=== PATIENT | female | born 1995 | race African-American/Black ===

== ENCOUNTER 2021-01-18 19:00 | Inpatient (IN) | payer BC, SELFPAY ==
[2021-01-18 19:42] VITALS: BP 124/73
[2021-01-18 19:43] VITALS: PULSE 81; O2SAT 98
[2021-01-18 19:45] VITALS: TEMP 36.6
[2021-01-18 19:50] VITALS: BMI 34.8
[2021-01-18] MEDS: Lactated Ringers 1,000 ML 50 ML IV (20:35)
[2021-01-18] MEDS: miSOPROStol 50 MCG TABLET 100 MCG VAGINAL (21:05)
[2021-01-18 21:14] LABS: Absolute Lymphocyte Count 2.71 X10^3/uL (0.83-4.51); Absolute Neutrophil Count 8.2 X10^3/uL (2.0-7.7); Basophil# 0.05 X10^3/uL; Basophil% 0.4 % (0-1); Eosinophil# 0.14 X10^3/uL; Eosinophils% 1.2 % (0-5); Hemoglobin 12.6 g/dL (12.0-15.0); Lymphocyte # 2.71 X10^3/ul (0.83-4.51); Lymphocyte % 22.4 % (19-41); Mean Corpuscular Hgb 31.8 pg (27.0-32.0); Mean Corpuscular Volume 90.9 fL (81-99); Mean Platelet Vol. 11.3 fl (6.2-12.0); Monocyte# 0.96 X10^3/uL; Monocyte% 7.9 % (0-10); NRBC Flagged by Analyzer 0 % (0-5); Neutrophil # 8.16 X10^3/uL (2.7-7.7); Neutrophil % 67.3 % (47-70); Platelet Count 281 K/mm3 (150-450); RBC Distribution Width SD 43.3 fl (35.1-43.9); Red Blood Count 3.96 M/mm3 (4.2-5.4); White Blood Count 12.1 K/mm3 (4.4-11.0)
[2021-01-18 23:46] VITALS: TEMP 36.6
[2021-01-18 23:47] VITALS: BP 107/57; PULSE 85; O2SAT 97
[2021-01-19] VITALS (23 sets, daily range): BP systolic 101–131; BP diastolic 54–86; PULSE 62–102; TEMP 36.6–37.6; O2SAT 94–97
[2021-01-19] MEDS: miSOPROStol 200 MCG Tablet VAGINAL ×3 (01:10→09:49)
[2021-01-19] MEDS: HYDROmorphone 1 MG/ML Syringe IV ×5 (06:20→19:32)
[2021-01-19] MEDS: Ondansetron 4 MG/2 ML Vial IV (06:30)
[2021-01-19] MEDS: 0.9% Saline Lock 10 ML Syringe IV ×4 (07:26→17:32)
--- NOTE | 2021-01-19 10:03 | HP.PCM.OB_ITS ---
HPI - General General Date of Admission: 01/18/21 HPI Narrative ARLETTE DELEON, is a 25-year-old 1 para 0 who was admitted at 23 weeks gestation on 01/18/2021. She is 23-1/7 weeks today. She was admitted for intrauterine demise in the second trimester. This is suspected to be due to cardiac anomaly that was diagnosed earlier in the . Patient's past medical history is significant for maternal obesity with BMI of 34, vitamin D deficiency and history of thyroid cancer and thyroidectomy. She also has a history of genital herpes. Maternal Data Information Final LORAINE: 05/17/21 Final LORAINE Source: LMP Gestational age: 23 1/7 [facility] Medical History (Updated 01/19/21 @ 10:[address] Marii Hunt MD) Hypothyroid Home Medications 1 cap PO/SL DAILY 01/18/21 [History Last Taken Unknown] levothyroxine 137 mcg PO DAILY 01/18/21 [History Last Taken Unknown] Allergy/AdvReac Type Severity Reaction Status Date / Time No Known Allergies Allergy Verified 01/18/21 19:51 Surgical History (Updated 01/18/21 @ 19:55 by Barbara Richardson) H/O thyroidectomy [place] teeth extracted Social History Smoking Status: Never smoker History Elective abortions Hx Para 0 Spontaneous abortions Hx # Term Pregnancies Ectopic pregnancies Hx # Pregnancies Multiple births # of living children ROS Constitutional Constitutional: Denies fatigue, fever(s) or malaise Eyes Eyes: Denies change in vision ENT HEENT: Denies dizziness or headache(s) Cardiovascular Cardiovascular: Denies chest pain, dyspnea or lightheadedness Respiratory/Chest Respiratory/Chest: Denies cough or dyspnea Gastrointestinal Gastrointestinal: Denies change in bowel habits Genitourinary Genitourinary: Denies burning urination or genital lesions Integumentary Integumentary: Denies rash Neurologic Neurologic: Denies confusion, dizziness, headache(s), numbness or weakness Vital Signs Vital Signs Vital Signs: 01/18/21 19:42 01/18/21 19:43 01/18/21 19:45 Temperature 97.9 F Temperature Source Temporal Pulse Rate 81 Blood Pressure 124/73 H BP Systolic 124 BP Diastolic 73 Pulse Ox 98 01/18/21 23:46 01/18/21 23:47 01/19/21 01:01 Temperature 97.9 F 98.2 F Temperature Source Pulse Rate 85 Blood Pressure 107/57 L BP Systolic 107 BP Diastolic 57 Pulse Ox 97 97 01/19/21 01:02 01/19/21 05:21 01/19/21 05:25 Temperature Temperature Source Temporal Temporal Pulse Rate 71 83 Blood Pressure 109/54 L 120/71 BP Systolic 109 120 BP Diastolic 54 71 Pulse Ox 96 01/19/21 05:26 01/19/21 07:15 01/19/21 07:16 Temperature 99.7 F H 98.6 F Temperature Source Pulse Rate 80 Blood Pressure 114/86 H BP Systolic 114 BP Diastolic 86 Pulse Ox 95 01/19/21 09:44 Temperature 99.0 F Temperature Source Pulse Rate 83 Blood Pressure 131/86 H BP Systolic 131 BP Diastolic 86 Pulse Ox Weight Weight: 89.267 kg Body Mass Index (BMI) 34.8 Physical Exam Const alert and no apparent distress General Appearance: cooperative HEENT normocephalic Resp normal respiratory effort Cardio regular rate GI soft to palpation GI Narrative: gravid, nontender, appropriate for gestational age Extremity no calf tenderness General Extremity: edema Skin no wounds Rashes: No rashes noted Psych activity/motor behavior normal Labs Labs Labs: Blood Type O POSITIVE Antibody Screen NEGATIVE Hct 36.0 % (37-47) L Hgb 12.6 g/dL (12.0-15.0) VZV IgG Antibody 988 index (Immune >165) Hep Bs Antigen Negative (Negative) Neisseria gonorrhoeae DNA (JASON) Negative (Negative-) Assessment & Plan (1) 23 weeks gestation of : (2) Normal first confirmed, currently in second trimester: (3) demise: PLAN: Patient was consented for induction of labor in the office on 01/18/2021. Patient elected for Cytotec induction. Risk benefits alternatives were reviewed, her questions were answered and she desires to proceed. This morning patient is doing well. Not have any significant bleeding. She has had some cramping but it has been well controlled with IV pain medication. We discussed expectations and again her questions were answered. She is comfortable with plan. May have epidural if needed. We will continue clear liquids only in case a D&C as needed to deliver the placenta. (4) cardiac anomaly complicating , antepartum, single gestation: (5) Maternal obesity syndrome: (6) Obesity (BMI 30-39.9):
[2021-01-19] MEDS: Oxytocin 30 units/NS 500 ml 30 UNITS/500 ML IV.SOLN IV (15:25)
[2021-01-19] MEDS: Oxytocin 30 units/NS 500 ml 30 UNITS/500 ML IV.SOLN 334 UNITS IV (20:43)
--- NOTE | 2021-01-19 20:52 | EX.PCM.OBRPT ---
Maternal Data Information Final LORAINE: 05/17/21 Gestational age: 23&2 Vaginal Delivery Maternal Presentation Maternal Presentation: Medically Indicated Induction Maternal Presentation: demise diagnosed in the office. Fetus with a known cardiac anomaly. Type of Induction: Pitocin and Cytotec Medical Reason for Induction: demise Operative Information Date of Procedure: 01/19/21 Pre-Operative Diagnosis: 23wk demise Post-Operative Diagnosis: Same Surgery / Procedure Performed: Spontaneous Vaginal Delivery Type of Anesthesia: None Estimated Blood Loss: 100ml Findings Description of Procedure: Called by RN when head & amniotic sac palpated in vaginal canal. She pushed well to deliver the fetus. As the fetus delivered the amniotic membranes ruptured. 3VC clamped & cut. Fetus wrapped in a blanket & placed in patient's arms by nursing staff. Placenta delivered with gentle traction and good uterine tone obtained. Presentation: Vertex Amniotic Membrane Rupture Type: Spontaneous Amniotic Fluid Description: Clear Placental Delivery Description: Spontaneous Placenta Disposition: [facility] Specimen(s) Removed: Placenta Cord Vessel Description: 3 Vessels Cord Entanglement: None A Gender: Male Delayed Cord Clamping: No Post Vaginal Delivery Medications Given After Delivery: IV Pitocin Episiotomy Description: None Laceration: None Complication Complications: None
--- NOTE | 2021-01-19 21:54 | NURSING ---
This RN obtained weight and length of . Weight: 15.8oz Length: 10.5 inches
[2021-01-20 03:21] VITALS: TEMP 35.8
[2021-01-20 03:22] VITALS: BP 99/55; PULSE 79
[2021-01-20 03:26] VITALS: BP 99/55; PULSE 79; RESP 16; TEMP 36.3
--- NOTE | 2021-01-20 08:28 | PCM.PN.OB ---
Subjective Subjective Patient tearful this morning but doing okay. She has no complaints and desires discharge. No pain, nausea, vomiting, heavy bleeding. Her parents were visiting last night. Her partner is with her at bedside for support. Objective Data Objective Data Vital Signs: Vital Signs Temp Pulse Resp BP Pulse Ox 97.4 F L 79 16 99/55 L 95 01/20/21 03:26 01/20/21 03:26 01/20/21 03:26 01/20/21 03:26 01/19/21 18:23 Oxygen Delivery Method Room Air Weight: 196 lb 12.8 oz Body Mass Index (BMI) 34.8 Intake & Output: Intake and Output for Last 24 Hours 01/18/21 01/19/21 01/20/21 23:59 23:59 23:59 Intake Total 20.83 / 20.83 Balance 20.83 / 20.83 Lab / Micro Data Result Diagrams: 01/18/21 20:35 Micro: Microbiology 01/19/21 19:25 Nasal Secretion SARS-CoV-2 Antigen (Rapid) - Final Physical Exam Const alert and no apparent distress General Appearance: comfortable Assessment & Plan (1) Obesity (BMI 30-39.9): (2) cardiac anomaly complicating , antepartum, single gestation: (3) demise: (4) 23 weeks gestation of : (5) Vaginal delivery: PLAN: Patient desires discharge today. Discussed follow-up in office when she emotionally feels ready, and option for virtual visits. Discharge instructions reviewed. Reviewed support groups. She has good support with family and partner.
--- NOTE | 2021-01-20 08:31 | PCM.DC ---
Discharge Instructions Diet Discharge Diet: No restrictions Activity Discharge Activity: May Shower May resume sexual activity in: 6 weeks Weight Bearing Status: Weight bearing as tolerated Lifting Restrictions: None Dressing / Incision Call your doctor if you observe: Fever of 101 or Higher, Coldness, Increased Pain, Numbness or Tingling, Change in Color, Inability to urinate, Inability to have a bowel movement, Using more than 1 pad per hour, Shortness of breath, Dizziness, Fainting spells, Swelling in the ankles, Chest pain, Increased palpitations (irregular heartbeat), Calf discomfort and Uncontrolled pain Follow Up Care When: Typically recommend virtual visit in 1 week and in person visit in 6 weeks. Ok to schedule follow up when you feel ready to see us and come into the office as long as you are doing ok at home Test Results: Test results from this visit will be discussed in further detail at your follow-up appointment, if applicable. Discharge Plan Admission Admit Date/Time: 01/18/21 19:00 Attending Provider: Marii Hunt Primary Care Provider: Georgette Burgess NP Discharge Orders/Prescriptions Prescriptions: Continued levothyroxine 125 mcg tablet 137 mcg PO DAILY RF: 0 1 cap capsule 1 cap PO/SL DAILY RF: 0 Referrals / Follow Up: Georgette Burgess NP, STORE COORDINATOR-C [Primary Care Provider] - Disposition Disposition (needs filled in before D/C Order can be placed): Home, Self Care
[2021-01-20 09:07] VITALS: BP 102/63; PULSE 71; RESP 16; TEMP 36.6; O2SAT 98
[2021-01-20 09:08] VITALS: BP 102/63; PULSE 70; O2SAT 97
== END 2021-01-20 09:15 | disposition home or self-care (01) | DRG 807 ==
PROVIDERS: Admitting Provider Obstetrics & Gynecology; PCP Nurse Practitioner Family; Visit Provider Obstetrics & Gynecology
DX: O36.4XX0 Maternal care for intrauterine death, not applicable or unspecified (principal); Z37.1 Single stillbirth; O35.8XX0 Maternal care for other (suspected) fetal abnormality and damage, not applicable or unspecified; O99.284 Endocrine, nutritional and metabolic diseases complicating childbirth; E89.0 Postprocedural hypothyroidism; O99.214 Obesity complicating childbirth; E66.9 Obesity, unspecified; Z3A.23 23 weeks gestation of pregnancy
CPT/HCPCS: 59050; 85025; 86850; 86900; 86901; 87426; 99218; J7120; A4216; G0378; J2405

== ENCOUNTER 2021-01-27 21:00 | Emergency (ER) | payer BC, SELFPAY ==
[2021-01-27 21:01] VITALS: BP 130/89; PULSE 84; RESP 16; TEMP 36; O2SAT 99; BMI 34.5
[2021-01-27 21:09] VITALS: BP 130/89; PULSE 84; RESP 16; TEMP 36; O2SAT 99
--- NOTE | 2021-01-27 21:17 | EDS_ITS ---
HPI HPI - URI History of Present Illness Chief Complaint: Sore Throat Detail of Chief Complaint: Sore throat and difficulty swallowing Informant: patient Onset/Context/Timing Context: Sudden Onset Current Severity: Mild Maximum Severity: Moderate Worsened by: Swallowing, Eating Solids and Drinking Liquids Associated Symptoms Associated Symptoms: Negative for Nasal Congestion, Headache, Sinus Pressure, Myalgias, Nausea, Vomiting, Diarrhea, Shortness of Breath, Chest Pain, Nonprod uctive cough and Productive Cough Narrative Narrative: Patient is 25-year-old female presents with sore throat. She localizes pain to the larynx. She states she did see white dots in the back of her throat. She denies fever. She denies rhinorrhea, congestion postnasal drainage. She denies cough or shortness of breath. She has had no ill contacts. She states her voice is changed. She reports drooling however her mask is dry. Prior similar symptoms: No Recent Illness/Hospitalization: No ROS ROS ED Constitutional Constitutional ED: Denies chills, fever(s), subjective or sweats Eyes Eyes: Denies blurry vision, change in vision or diplopia ENT ENT ED: Reports sore throat; Denies ear pain or rhinorrhea Cardiovascular Cardiovascular: Denies chest pain or palpitations Respiratory/Chest Respiratory/Chest: Denies cough or dyspnea Gastrointestinal Gastrointestinal: Denies diarrhea, nausea or vomiting Musculoskeletal Musculoskeletal: Denies arthralgias or myalgias Integumentary Denies rash Neurologic Neurologic: Denies headache(s) Allergic/Immunologic Allergic/Immunologic ED: Denies mouth swelling, tongue swelling or urticaria PFSH PFSH Medical History Hypothyroid Home Medications 1 cap PO/SL DAILY 01/18/21 [History Last Taken Unknown] levothyroxine 137 mcg PO DAILY 01/18/21 [History Last Taken Unknown] Allergy/AdvReac Type Severity Reaction Status Date / Time No Known Allergies Allergy Verified 01/27/21 21:10 Surgical History H/O thyroidectomy [place] teeth extracted Social History (Updated 01/27/21 @ 21:[address] Martínez Babcock MD) household members: family Smoking Status: Never smoker substance use type: does not use EXAM Physical Exam Const Vital Signs: 01/27/21 21:01 01/27/21 21:09 Temperature 96.8 F L 96.8 F L Temperature Source Temporal Temporal Pulse Rate 84 84 Respiratory Rate 16 16 Blood Pressure 130/89 H 130/89 H Blood Pressure Mean 102 102 Pulse Ox 99 99 Oxygen Delivery Method Room Air Room Air Positive well nourished, well developed and obese General Appearance ED: well developed and NAD; Negative for pallor Nutritional Appearance: obese HEENT Reports moist mucous membranes normocephalic and atraumatic Face and Sinus: Negative for facial tenderness External Ear: external ears normal, external ear abnormal and preauricular a denopathy External Auditory Canal: EAC's normal Throat: tonsils abnormal bilateral exudates and posterior oropharynx abnormal Eyes PERRL and EOMs intact bilaterally General Eye ED: Negative for pale conjunctiva or scleral icterus Neck no lymphadenopathy, supple, no meningeal signs and no JVD Neck Narrative: Trachea is midline. There is no in-store expiratory stridor. Movement of her trachea causes discomfort. General: Negative for anterior neck swelling or lymphadenopathy Resp normal respiratory effort and clear to auscultation bilaterally Cardio S1 normal heart sound, S2 normal heart sound and no murmurs Rate: regular rate Rhythm: regular rhythm Neuro oriented x3 and CN's II-XII intact bilaterally Psych mental status grossly normal Skin General Skin Exam: Negative for jaundice or pallor Lesions: no lesions Rashes: no rashes MDM MDM MDM Narrative Medical decision making narrative: Tonsils are not enlarged. There is exudate noted. This may represent viral versus strep. Since patient complains of significant difficulty swallowing change in voice and pain with moving her larynx soft tissue of the neck was obtained to assess for epiglottitis, retropharyngeal abscess and parapharyngeal abscess. Lab Data Attestation: I reviewed the patient's lab results. Lab results narrative: Rapid strep was negative. Treatment is symptomatic. Radiography Diagnostic Testing: Clinical Impression(s) from Imaging Studies Soft Tissue Neck X-Ray 01/27/21 21:20 IMPRESSION: No acute findings. Postsurgical changes status post thyroidectomy. Electronically Signed: Fred Tian MD at 21:32 EST Tel , Service support , 2 view soft tissue x-ray of the neck was interpreted by me as negative. The epiglottis is normal. The retropharyngeal space is normal. There is no lingular tonsillitis noted. Waiting for strep screen to return. Discharge Plan Triage Chief Complaint: Sore Throat ED Provider: Martínez Babcock Dx/Rx/DC Orders Clinical Impression: Exudative tonsillitis Instructions: ED Tonsillitis Prescriptions: No Action levothyroxine 125 mcg tablet 137 mcg PO DAILY RF: 0 1 cap capsule 1 cap PO/SL DAILY RF: 0 Primary Care Provider: Georgette Burgess NP Referrals: Georgette Burgess NP, DECONTAMINATION TECHNICIAN-C [Primary Care Provider] - 3-5 Days if not improving Activity Restrictions/Additional Instructions: 1. Salt water gargles 6-8 times a day 2. Chloraseptic spray for discomfort 3. If you are unable to swallow or if you are drooling return to the emergency department Disposition Disposition: Home, Self Care
--- NOTE | 2021-01-27 21:20 | RAD_ITS ---
INDICATION: Anterior throat pain EXAMINATION/TECHNIQUE: X-RAY - XR Neck Soft Tissue COMPARISON: None. FINDINGS: SOFT TISSUES: Postsurgical changes status post thyroidectomy. No radiopaque foreign body. EPIGLOTTIS: No pathologic thickening or enlargement. PROXIMAL AIRWAY: Grossly patent. RAD/Neck for Soft Tissue IMPRESSION: No acute findings. Postsurgical changes status post thyroidectomy. Electronically Signed: Fred Tian MD at 21:32 EST Tel , Service support ,
== END 2021-01-27 22:10 | disposition home or self-care (01) ==
PROVIDERS: Emergency Provider Emergency Medicine; PCP Nurse Practitioner Family
DX: J03.90 Acute tonsillitis, unspecified (principal); E89.0 Postprocedural hypothyroidism; E66.9 Obesity, unspecified; Z68.34 Body mass index [BMI] 34.0-34.9, adult; Z79.899 Other long term (current) drug therapy
CPT/HCPCS: 70360; 87880; 99282

== ENCOUNTER → 2022-09-28 | Outpatient (CLI) | payer BC, SELFPAY ==
[2022-09-28 11:27] LABS: Squamous Epithelial Cells - UA 0 SEEN /hpf (5-10)
[2022-09-28 11:40] LABS: Color, Urine Yellow (Yellow); Glucose, Dipstick Normal (Normal); Ketone-Dipstick Negative (Negative); Leukocyte Esterase-Dipstick 500 /ul (Negative); Nitrite-Dipstick Positive (Negative); Occult Blood-Urine 250 /ul (Negative); Protein-Dipstick 100 mg/dl (Negative); Urine Clarity Cloudy (Clear); Urine Urobilinogen 1 mg/dl (Normal)
[2022-09-28 11:41] LABS: Urine Bilirubin Dipstick 1 mg/dL (Negative)
[2022-09-28 11:47] LABS: Bacteria 1+ /hpf (None Seen); Mucous, Urine 0 SEEN /hpf (<or=2+); Red Blood Cells-Urine 50-100 SEEN /hpf (0-5); White Blood Cells >100 SEEN /hpf (0-5)
== END | disposition home or self-care (01) ==
PROVIDERS: PCP Nurse Practitioner Family; Referring Provider Physician Assistant; Visit Provider Physician Assistant
DX: N39.0 Urinary tract infection, site not specified (principal)
CPT/HCPCS: 81001; 87077; 87086; 87088; 87186

== ENCOUNTER → 2022-12-26 | Outpatient (CLI) | payer BC, SELFPAY ==
[2022-12-26 16:09] LABS: Bacteria 0 SEEN /hpf (None Seen); Mucous, Urine 0 SEEN /hpf (<or=2+); Squamous Epithelial Cells - UA 0 SEEN /hpf (5-10)
[2022-12-26 16:31] LABS: Color, Urine Yellow (Yellow); Glucose, Dipstick Normal (Normal); Ketone-Dipstick Negative (Negative); Leukocyte Esterase-Dipstick 500 /ul (Negative); Nitrite-Dipstick Negative (Negative); Occult Blood-Urine 250 /ul (Negative); Protein-Dipstick 100 mg/dl (Negative); Urine Bilirubin Dipstick Negative (Negative); Urine Clarity Sl. Cloudy (Clear); Urine Urobilinogen 1 mg/dl (Normal); Urine pH 6.5 (5.0 - 8.0)
[2022-12-26 17:01] LABS: Red Blood Cells-Urine 10-25 SEEN /hpf (0-5); White Blood Cells 25-50 SEEN /hpf (0-5)
== END | disposition home or self-care (01) ==
LOC: LABSPEC 15:30
PROVIDERS: PCP Nurse Practitioner Family; Referring Provider Physician Assistant; Visit Provider Physician Assistant
DX: R35.0 Frequency of micturition (principal)
CPT/HCPCS: 81001; 87086; 87088; 87186

== ENCOUNTER 2023-02-15 13:04 | Emergency (ER) | payer BC, SELFPAY ==
[2023-02-15 13:05] VITALS: BP 138/81; PULSE 108; RESP 22; TEMP 37.2; O2SAT 93; BMI 38.6
[2023-02-15 13:16] VITALS: O2SAT 96
--- NOTE | 2023-02-15 13:25 | RAD_ITS ---
STUDY: X-RAY CHEST REASON FOR EXAM: Female, 27 years old. Cough, sob -- , please shield TECHNIQUE: PA and lateral views of the chest. COMPARISON: None. FINDINGS: The lungs are clear and expanded. There is no demonstrated pleural abnormality. Normal size heart. Normal mediastinum and cristina. Normal visualized pulmonary arteries. Normal visualized aortic arch and descending thoracic aorta. Normal visualized thoracic spine. Normal visualized ribs, clavicles, and shoulders. There is no demonstrated abnormality of the visualized soft tissue structures of the upper abdomen. RAD/Chest PA and Lateral IMPRESSION: Normal x-ray examination of the chest. Electronically Signed: Rambo Bender MD at 14:12 [facility] ,
--- NOTE | 2023-02-15 13:26 | EDS_ITS ---
HPI HPI - URI History of Present Illness Chief Complaint: Shortness of Breath Informant: patient Narrative Narrative: Patient states she has had cold symptoms for the past 4 weeks. Cough, congestion, usually nonproductive but occasionally coughs up small amounts of sputum nonbloody, no wheezing, feels like she has chest congestion and dyspnea as a result of all of this. No fevers or chills. Has had no test in the past month but did have someone placed her on some steroids, she is unsure if it really helped or not but does recall that in the last week since she finished them, she has been feeling worse with more wheezing. She has been given no breathing treatments or inhalers. She does not have asthma. She currently is 23 weeks with no issues there. She is otherwise healthy except for her hypothyroidism. ROS ROS ED Constitutional Constitutional ED: Denies chills or fever(s) ENT ENT ED: Reports nasal congestion, rhinorrhea and sore throat; Denies ear pain Cardiovascular Cardiovascular: Denies chest pain, palpitations or pedal edema Respiratory/Chest Respiratory/Chest: Reports cough, dyspnea and wheezing Gastrointestinal Gastrointestinal: Denies abdominal pain, diarrhea, nausea or vomiting Genitourinary Genitourinary ED: Denies dysuria or hematuria Musculoskeletal Musculoskeletal: Denies myalgias or neck pain Integumentary Denies abscess or rash Neurologic Neurologic: Denies headache(s), paresthesias or weakness Psychiatric Psychiatric: Denies depression or suicidal thoughts Endocrine Endocrinology: Denies polydipsia or polyuria [facility] Medical History Acute maxillary sinusitis, unspecified Acute pharyngitis Acute sinusitis Conjunctivitis Contact with and (suspected) exposure to other viral communicable diseases cardiac anomaly complicating , antepartum, single gestation demise Hx of thyroid cancer Hypothyroid Internal derangement of left knee Maternal obesity syndrome Strain of left knee URI (upper respiratory infection) Vaginal delivery Home Medications levothyroxine 125 mcg tablet 137 mcg PO DAILY Check with primary doctor 01/18/21 [History Last Taken Unknown] azithromycin 250 mg tablet See Rx Instructions PO .COMPLEX #6 tabs 02/15/23 [Rx Last Taken Unknown] Allergy/AdvReac Type Severity Reaction Status Date / Time No Known Allergies Allergy Verified 02/15/23 13:04 Surgical History H/O thyroidectomy [place] teeth extracted Social History household members: family Smoking Status: Never smoker substance use type: does not use EXAM Physical Exam Const Vital Signs: 02/15/23 13:05 02/15/23 13:16 02/15/23 13:44 Temperature 99 F Temperature Source Temporal Pulse Rate 108 H Respiratory Rate 22 H 16 Respiratory Effort Non-Labored Short of Breath Respiratory Pattern Normal Blood Pressure 138/81 H Blood Pressure Mean 100 Pulse Ox 93 Oxygen Delivery Method Room Air Room Air Positive well nourished and well developed General Appearance ED: well developed and NAD HEENT Reports moist mucous membranes normocephalic and atraumatic Throat: Negative for posterior oropharynx abnormal Eyes PERRL and EOMs intact bilaterally Neck no lymphadenopathy, supple and no meningeal signs Resp normal respiratory effort Resp Narrative: Diffuse expiratory wheezes symmetric trachea midline Effort and Inspection: able to speak in complete sentences Cardio no murmurs Rate: regular rate Rhythm: regular rhythm GI non-tender GI Narrative: Distended with gravid uterus to about the umbilicus, nontender Extremity normal to inspection and full ROM Neuro oriented x3, CN's II-XII intact bilaterally and no sensory deficits noted Sensorium / Orientation: alert Motor Exam: strength 5/5 throughout Psych mental status grossly normal Skin Lesions: no lesions Rashes: no rashes MDM MDM MDM Narrative Medical decision making narrative: 2 view chest x-ray obtained while patient was shielded due to being , I reviewed the images and report which I agree with, negative for acute pneumonia on my interpretation and radiology is in agreement. Patient was given albuterol nebulizer in the meantime she said it helped some she is offered another and declined it. Given that she has had this for 4 weeks I will prescribe her a Z- Jonny to cover for atypicals and prescribe her an albuterol inhaler just to use as needed for the wheezing, I do not think she needs more steroid she is in agreement, and she is comfortable this plan of following up. Radiography Diagnostic Testing: Clinical Impression(s) from Imaging Studies Chest X-Ray 02/15/23 13:25 IMPRESSION: Normal x-ray examination of the chest. Electronically Signed: Rambo Bender MD at 14:12 EST , Discharge Plan Triage Chief Complaint: Shortness of Breath ED Provider: Jonathan Kingston Dx/Rx/DC Orders Clinical Impression: Acute wheezy bronchitis, Second trimester Instructions: ED Bronchitis with Wheezing (Adult) Prescriptions: New azithromycin 250 mg tablet See Rx Instructions .ROUTE .COMPLEX Qty: 6 0RF Rx Instructions: For 250 mg dose pack: take 500 mg today (day 1), then 250 mg for 4 days (days 2-5) No Action levothyroxine 125 mcg tablet 137 mcg PO DAILY Primary Care Provider: Care Physician,No Primary Referrals: Georgette Burgess AUTOMOTIVE PRODUCTION WORKER, AUTOMOTIVE PRODUCTION WORKER-C [Non-Staff] - 1 Week if not improving Disposition Disposition: Home, Self Care
[2023-02-15 13:44] VITALS: RESP 16
[2023-02-15] MEDS: Albuterol 2.5 MG/3 ML VIAL.NEB. INHALATION (13:44)
== END 2023-02-15 15:31 | disposition home or self-care (01) ==
PROVIDERS: Emergency Provider Emergency Medicine; Visit Provider Emergency Medicine
DX: O99.512 Diseases of the respiratory system complicating pregnancy, second trimester (principal); J20.9 Acute bronchitis, unspecified; Z3A.23 23 weeks gestation of pregnancy
CPT/HCPCS: 71046; 94640; 99282

== ENCOUNTER 2023-05-24 09:25 | Inpatient (IN) | payer BC, SELFPAY ==
--- NOTE | 2023-05-21 17:10 | HP.PCM_ITS ---
History and Physical Date of Admission: 05/21/23 Pre-Op History and Physical ? HPI: The patient is a 27 year old female presenting for pre-operative visit. She is scheduled for and bilateral salpingectomy, for high risk , h/o IUFD on 05/24/23. Procedure discussed along with risks, benefits and complications. Other alternatives discussed for management. Consent form signed? Yes. ? ? PAST MEDICAL HISTORY PAST MEDICAL HISTORY Diagnosis Date ? Diet controlled gestational diabetes mellitus (GDM) in third trimester ? Herpes simplex type 2 (HSV-2) infection affecting , antepartum, unspecified trimester 11/28/2020 ? Malignant neoplasm of thyroid gland (HCC) ? ? Nontoxic uninodular goiter ? ? Prior with demise, fetus with CHD 11/05/2022 ? Vitamin D deficiency ? ? ? PAST SURGICAL HISTORY PAST SURGICAL HISTORY Procedure Laterality Date ? THYROID LOBECTOMY,UNILAT Right ? ? 6 months after left throid lobectomy ? TOTAL THYROID LOBECTOMY UNI W/WO ISTHMUSECTOMY ? 10/22/2007 ? left ? ? ? CURRENT MEDICATIONS Current Outpatient Medications Medication Sig Dispense Refill ? acyclovir (ZOVIRAX) 400 mg tablet Take 1 tablet by mouth three times a day. 30 tablet 0 ? levothyroxine (LEVOXYL) 200 mcg tablet Take 1 tablet by mouth once daily. 30 tablet 11 ? blood sugar diagnostic test strip Use as directed to check glucose levels up to seven times daily. 200 Strip 8 ? Lancets lancets Use as directed to check glucose levels up to seven times daily. 200 Each 8 ? alcohol swabs (ALCOHOL PREP PADS) Use as directed to check glucose levels up to seven times daily. 200 Each 8 ? escitalopram oxalate (LEXAPRO) 20 mg tablet Take 20 mg by mouth once daily. ? ? ? Gjiiprvo-Qw-Iwm-Fe-FA ( VITAMIN) tab Take 1 tablet by mouth. ? ? ? ktwh-L0-ghtmxd-Y0-Rv-Qf-lalitha 250 mg-400 unit -40 mg-5 mg tab Take by mouth. ? ? ? No current facility-administered medications for this visit. ? ? ALLERGIES: Patient has no known allergies. ? PERSONAL HISTORY: SOCIAL HISTORY Social History ? Tobacco Use ? Smoking status: Never ? ? Passive exposure: Never ? Smokeless tobacco: Never Vaping Use ? Vaping Use: Never used Substance Use Topics ? Alcohol use: No ? Drug use: Not Currently ? FAMILY HISTORY: FAMILY HISTORY FAMILY HISTORY Adopted: Yes Problem Relation Age of Onset ? Thyroid Maternal Grandmother ? ? ? REVIEW OF SYMPTOMS: GENERAL: denies fevers or chills ENDOCRINOLOGY: has not been on steroids Cardiology : denies palpitations or chest pain Respiratory: denies SOB or cough Hematology: denies history of prolonged bleeding or easy bruising or VTE Allergy: Denies history of personal or family history of allergy to anesthesia ? PHYSICAL EXAMINATION: ? VITALS: Last menstrual period 09/08/2022, unknown if currently . ? GENERAL: The patient is well nourished, well hydrated in no acute distress. , The patient is oriented to time, place, and person. ? IMPRESSION: Estimated Date of Delivery: 06/15/23 ? PLAN: The risks/benefits/alternatives and personal involved for the planned c- section and bilateral salpingectomy were reviewed with the patient. Her questions were answered to her satisfaction and she desires to proceed. Consent was signed. I reviewed with her postop instructions and expectations. ? ? I have reviewed and updated past medical and surgical history, medications and allergies [facility] recommends proceding with early delivery due to HSV outbreak, DM becoming more difficult to control and h/o IUFD. R/B/A to early delivery reveiwed, she desires to proceed. Desires sterilization
[2023-05-24] VITALS (15 sets, daily range): BP systolic 96–142; BP diastolic 50–82; PULSE 78–102; RESP 16; TEMP 36.1–36.8; O2SAT 98–100; BMI 58.1; BMI 41.1
--- NOTE | 2023-05-24 | FALS_PTH ---
PATHOLOGY RESULTS PATIENT: ARLETTE DELEON LOC: [facility] U#:[id number] AGE/SX: 27/F ROOM: WP004 RE05/24/[address]: Dr. Marii Hunt MD : 1995 BED: 1 DIS: 05/25/2023 SPEC #: [id number] RECD: 05/24/23 14:13 STATUS: MICHELE REBerenice #: [id number] RAGINI: 05/24/23 00:[address]: Marii Hunt DEPT: SURGICAL PATHOLOGY RECD BY: Ernie Tyler ENTERED: 05/27/23 10:30 SP TYPE: FALL TUBES OTHR DR: No Primary Care Phys Tissues: Uterine cervix, NOS Fallopian tube Procedures: Surgery Specimen Level II Surgery Specimen Level IV HEADER OPERATION: A. Uterine fibroid removal, B. Tubal ligation PRE-OP DIAGNOSIS: Fibroid and sterilization TISSUE SUBMITTED: A. Uterine fibroid, B. Fallopian tubes MICROSCOPIC DIAGNOSIS A. Uterine fibroid, excision; Leiomyoma (2.5 cm in greatest dimension). B. Bilateral fallopian tubes, salpingectomy: Bilateral fallopian tubes, no pathologic diagnosis. KIM: 05/28/2023 MICROSCOPIC DESCRIPTION Slides are reviewed. GROSS DESCRIPTION A. Received in fixative is one container labeled with the patient's name and designated Uterine cyst. The specimen consists of a piece of pink nodule tissue measuring 2.5x 1.5x1 .0cm. Sections reveal solid nodule measuring 1.0x1.5x1.0cm. Entire specimen is submitted into two cassettes. B. Received in fixative is one container labeled with the patient's name and designated bilateral fallopian tubes, suture in right. The specimen consists of bilateral fallopian tubes including fimbrial ends. The right fallopian tube measures 8.0 cm in length and up to 1.0 cm in diameter. The left fallopian tube measures 7.0cm in length and 1.0cm in diameter. Sections reveal unremarkable cut surfaces. Storage Battery Inspector sections are submitted in two cassettes as follows; 1- right fallopian tube 2-Left fallopian tube. KIM:rick 05/27/23 TC:4 CPT: 94990 x2 ,08407
[2023-05-24] MEDS: Lactated Ringers 1,000 ML 999 ML IV (10:00)
[2023-05-24 10:22] LABS: Absolute Lymphocyte Count 2.44 X10^3/uL (0.83-4.51); Absolute Neutrophil Count 8.2 X10^3/uL (2.0-7.7); Basophil# 0.05 X10^3/uL; Basophil% 0.4 % (0-1); Eosinophil# 0.36 X10^3/uL; Eosinophils% 2.9 % (0-5); Hematocrit 31.8 % (37-47); Hemoglobin 10.6 g/dL (12.0-15.0); Lymphocyte # 2.44 X10^3/ul (0.83-4.51); Lymphocyte % 19.9 % (19-41); Mean Corp Hgb Conc 33.3 g/dL (32-36); Mean Corpuscular Hgb 29.2 pg (27.0-32.0); Mean Corpuscular Volume 87.6 fL (81-99); Mean Platelet Vol. 11.7 fl (6.2-12.0); Monocyte# 1.12 X10^3/uL; Monocyte% 9.1 % (0-10); NRBC Flagged by Analyzer 0 % (0-5); Neutrophil # 8.15 X10^3/uL (2.7-7.7); Neutrophil % 66.6 % (47-70); Platelet Count 226 K/mm3 (150-450); RBC Distribution Width CV 13.2 % (11.6-14.6); Red Blood Count 3.63 M/mm3 (4.2-5.4); White Blood Count 12.3 K/mm3 (4.4-11.0)
[2023-05-24] MEDS: Acetaminophen 500 MG Tablet 1000 MG PO ×3 (10:42→23:03)
[2023-05-24] MEDS: Lactated Ringers 1,000 ML 150 ML IV (10:45)
[2023-05-24 11:23] LABS: Bedside Glucose 82 mg/dL (74-106)
[2023-05-24 11:34] LABS: Syphilis Antibodies Non-reactive
[2023-05-24] MEDS: Sodium Citrate/Citric Acid 30 ML UDC PO (11:48)
[2023-05-24] MEDS: Cefazolin 2 GM in 0.9% Normal Saline (100mL Bag) 100 ML IV (12:05)
--- NOTE | 2023-05-24 12:47 | EX.PCM.OBRPT ---
Assessment & Plan (1) 36 weeks gestation of : (2) Diabetes in : (3) Genital herpes affecting in third trimester: (4) Maternal obesity syndrome in third trimester: (5) High risk multigravida in third trimester: (6) delivery delivered: (7) Single live : Maternal Data Information Final LORAINE: 06/15/23 Gestational age: 36 6/7 Details Operative Information Date of Procedure: 05/24/23 Pre-Operative Diagnosis: diabetes type 2, blood sugars increasing, recurrent HSV outbreak Post-Operative Diagnosis: same Procedure Type: low transverse (with bilateral salpingectomy) fire apparatus engineer #1: Bryce Jean Baptiste fire apparatus engineer #2: Cipriano Stuart [id number] Type of Anesthesia: Spinal Anesthesiologist: Tre Marcelo Antibiotic Given: Ancef 2 grams IV x1 Drain: Montes De Oca to straight drain Estimated Blood Loss: 800 Fluids Replaced: 1200 Procedure Start Time: 12:16 Procedure Stop Time: 12:57 Time of Delivery: 12:18 Findings Description of Procedure: The patient was taken to the operating room. She was prepped and draped in the dorsal supine position with a leftward tilt. A Pfannenstiel skin incision was made approximately 2 cm above the symphysis pubis and carried through to underlying layer fascia with the scalpel. The fascia was incised incised in the midline and extended laterally with the Peace scissors. The fascia was dissected off the rectus muscles with blunt and sharp dissection. The rectus muscles were in the midline and the peritoneum was entered bluntly. The peritoneal incision was stretched and the bladder blade was placed. The uterine incision was made in a low transverse fashion with the scalpel and extended superiorly and inferiorly with blunt dissection. The amniotic membranes were ruptured bluntly and clear amniotic fluid returned. The infant's head was brought to the incision in the flexed position and delivered without difficulty. A loose double nuchal cord was easily reduced. The remainder of the was delivered with gentle traction and fundal pressure in the standard fashion. The mouth and nares were bulb suctioned. The cord was clamped and cut as the infant was stimulated. Cord clamping was delayed approximately 30 seconds. The was handed off to the waiting nursing staff. The placenta was delivered with fundal massage and gentle traction in the standard fashion. The uterus was exteriorized and cleared of all clots and debris. The cervix was dilated with a ring forcep. There was a small 1.5 cm uterine fibroid right in the superior edge of the incision to the right of the fundus. It was removed with Bovie cauterization and handed off and sent to pathology. I removed it so would not be in the way of the closure of the incision. It would have been included in the closure of the incision had I not removed it. The uterine incision was closed with #1 Vicryl in a running locked fashion. A second layer of the same suture was used in an imbricating fashion to obtain hemostasis and some bleeding sinuses. The incision was examined and was found to be hemostatic. The uterus was placed back into the peritoneal cavity and hemostasis was again confirmed. The left fallopian tube was identified and followed out to the fimbriated end. It was tented up with Lex clamps and the LigaSure device was used to clamp, seal and transect the antimesenteric portion of the tube. It was then clamped, sealed transected across the cornual insertion. Excellent hemostasis was noted and same procedure was performed on the contralateral side. The tubes were handed off and sent to pathology. Some hemoblast was placed over the uterine incision. The rectus muscles were examined and any bleeding was Bovie cauterized. The parietal peritoneum and rectus muscles were closed en bloc with an 0 Vicryl running suture. Some hemoblast was placed over the rectus muscles. The rectus fascia was examined and any bleeding was Bovie cauterized and the rectus fascia was closed with #1 PDS suture in a running standard fashion. The subcutaneous tissue was examining and any bleeding was Bovie cauterized. The subcutaneous tissue was reapproximated with 3-0 Vicryl suture. The skin was closed in a subcuticular fashion by the HOT METAL CHARGER with me present in the labor and delivery suite. I performed the remainder of the procedure with assistance. All sponge, lap, and needle counts were correct. The patient was taken to her room for recovery in a stable condition. Presentation: Positive for Vertex Amniotic Membrane Rupture Type: Artificial Amniotic Fluid Description: Clear Placental Delivery Description: Expressed Placenta Disposition: [facility] Specimen(s) Sent to Pathology: bilateral fallopian tubes, uterine fibroid Cord Vessel Description: 3 Vessels Cord Entanglement: Around neck x 2, loose Nuchal Cord Compression: Without compression Cord Gases: ABG and VBG A Gender: Male (Juan) (1 minute): 7 (5 minute): 9 Delayed Cord Clamping: Yes Complications Complications: none Admit VTE Documentation VTE Present on Admission: No VTE Mechan Device Prophylaxis: SCD's VTE Pharm Prophylaxis Ordered: Yes
[2023-05-24] MEDS: Ketorolac 30 MG/ML Syringe IV ×2 (13:40→19:44)
[2023-05-24 14:58] LABS: Bedside Glucose 81 mg/dL (74-106)
[2023-05-24] MEDS: Oxytocin 15 Units/NS 250ml 15 UNITS/250 ML IV.SOLN 83 UNITS IV (16:09)
[2023-05-25] MEDS: Enoxaparin 40 MG/0.4 ML Syringe SC ×2 (00:10→12:35)
[2023-05-25 00:12] VITALS: BP 110/53; PULSE 80; RESP 16; TEMP 36.4; O2SAT 96
[2023-05-25] MEDS: Ibuprofen 600 MG Tablet PO ×3 (02:15→15:31)
[2023-05-25] MEDS: Acetaminophen 500 MG Tablet 1000 MG PO ×3 (05:00→17:09)
[2023-05-25 05:01] VITALS: BP 105/63; PULSE 81; RESP 16; TEMP 36.4; O2SAT 97
[2023-05-25 05:18] LABS: Hematocrit 27.6 % (37-47); Hemoglobin 9.3 g/dL (12.0-15.0); Mean Corp Hgb Conc 33.7 g/dL (32-36); Mean Corpuscular Hgb 29.4 pg (27.0-32.0); Mean Corpuscular Volume 87.3 fL (81-99); Mean Platelet Vol. 11.6 fl (6.2-12.0); Platelet Count 195 K/mm3 (150-450); RBC Distribution Width CV 13.2 % (11.6-14.6); RBC Distribution Width SD 41.9 fl (35.1-43.9); Red Blood Count 3.16 M/mm3 (4.2-5.4); White Blood Count 17.4 K/mm3 (4.4-11.0)
[2023-05-25 06:22] LABS: Bedside Glucose 105 mg/dL (74-106)
[2023-05-25 08:45] VITALS: BP 125/70; PULSE 96; RESP 16; TEMP 36.4; O2SAT 98
[2023-05-25] MEDS: Senna/Docusate Sodium 1 Tablet PO (08:55)
--- NOTE | 2023-05-25 09:21 | PCM.DC.SUM ---
Providers Date of Admission: 05/24/23 Primary Care Physician: No Primary Care Phys Reason For Visit: PRIMARY Diagnosis Discharge Diagnosis (1) 36 weeks gestation of : Status: Acute Code(s): Z3A.36 - 36 weeks gestation of (2) Diabetes in : Status: Acute Code(s): O24.919 - Unspecified diabetes mellitus in , unspecified trimester (3) Genital herpes affecting in third trimester: Status: Acute Code(s): O98.313 - Other infections with a predominantly sexual mode of transmission complicating , third trimester; A60.09 - Herpesviral infection of other urogenital tract (4) Maternal obesity syndrome in third trimester: Status: Acute Code(s): O99.213 - Obesity complicating , third trimester (5) High risk multigravida in third trimester: Status: Acute Code(s): O09.43 - Supervision of with grand multiparity, third trimester (6) delivery delivered: Status: Acute Code(s): O82 - Encounter for delivery without indication (7) Single live : Status: Acute Code(s): Z37.0 - Single live Plan POD 1 Primary C/S Pain control Increase ambulation support Requesting discharge home at 24 hours Medications at Discharge Home Medications levothyroxine 125 mcg tablet 137 mcg PO DAILY Check with primary doctor 01/18/21 azithromycin 250 mg tablet See Rx Instructions PO .COMPLEX #6 tabs 02/15/23 acetaminophen 500 mg tablet 1,000 mg (2 x 500 mg) PO Q6H #0 tabs 05/25/23 ibuprofen 600 mg tablet 600 mg PO Q6H #0 tabs 05/25/23 sennosides 8.6 mg-docusate sodium 50 mg tablet (Stool Softener-Stimulant Laxative) 1 - 2 tab PO DAILY #0 tabs 05/25/23 Hospital Course Operations section Procedures None Summary of Care Provided Minutes Spent on Discharge: 15 Hospital Course: Patient here for planned, primary section. Hospital course was uneventful. Physical Exam Narrative Patient seen at bedside. Denies pain. Taking PO Tylenol and Motrin since yesterday due to IV infiltration. with support. Ambulating and voiding without difficulty. Denies headache, dizziness, SOB, or CP. Requesting discharge at 24 hours. Dressing is dry and intact. Const alert and no apparent distress General Appearance: cooperative and comfortable Exam Limitations: no limitations HEENT normocephalic Eyes General Eye: normal appearance of both eyes Neck full ROM General: normal visual inspection Chest Chest: symmetrical chest wall rise Resp normal respiratory effort and normal air movement Effort and Inspection: symmetric chest movement Auscultation: clear to auscultation bilaterally Cardio regular rate and regular rhythm GI normal to inspection, nondistended, normoactive bowel sounds Back/Spine normal ROM Extremity full ROM and no calf tenderness General Extremity: normal exam except as noted Skin no rashes or lesions noted Neuro CN's II-XII intact bilaterally Psych mental status grossly normal Weight / BMI Weight Weight: 232 lb 8 oz Body Mass Index (BMI) 41.1 ABG / Lab / Microbiology Data 05/25/23 05:09 Laboratory: Laboratory Results - last 24 hr 05/24/23 10:00: WBC 12.3 H, RBC 3.63 L, Hgb 10.6 L, Hct 31.8 L, MCV 87.6, MCH 29.2, MCHC 33.3, RDW Std Deviation 42.0, RDW Coeff of Marcos 13.2, Plt Count 226, MPV 11.7, Immature Gran % (Auto) 1.100 H, Neut % (Auto) 66.6, Lymph % (Auto) 19.9, Wallace % (Auto) 9.1, Eos % (Auto) 2.9, Baso % (Auto) 0.4, Absolute Neuts (auto) 8.2 H, Absolute Lymphs (auto) 2.44, Nucleated RBC % 0, Syphilis Total Ab Non-reactive, Blood Type O POSITIVE, Antibody Screen NEGATIVE 05/24/23 11:02: POC Glucose 82 05/24/23 14:38: POC Glucose 81 05/25/23 05:09: WBC 17.4 H, RBC 3.16 L, Hgb 9.3 L, Hct 27.6 L, MCV 87.3, MCH 29.4, MCHC 33.7, RDW Std Deviation 41.9, RDW Coeff of Marcos 13.2, Plt Count 195, MPV 11.6 05/25/23 06:03: POC Glucose 105 D/C Instructions Discharge Diet: No restrictions May resume sexual activity in: 6-8 weeks Weight Bearing Status: Weight bearing as tolerated Lifting Restrictions: 20 lbs Call your doctor if your incision/area has: Continuous Slow Oozing, Increased Pain/ Swelling, Increased Redness, Foul Smelling Discharge and Swelling at the incision site Call your doctor if you observe: Fever of 101 or Higher, Inability to urinate, Using more than 1 pad per hour, Shortness of breath, Chest pain, Calf discomfort and Uncontrolled pain Remove Dressing in: 5 days Cleanse incision/area with: Soap & Water and Keep Dressing Clean & Dry When: 1 week in office for incision check or sooner if needed 6 weeks Meaningful Use Info Meaningful Use Diagnoses (Choose all that apply): None applicable Discharge Plan Admission Admit Date/Time: 05/24/23 09:25 Primary Reason for Your Visit: Primary Section Attending Provider: Marii Hunt Primary Care Provider: Care Physician,No Primary Discharge Orders/Prescriptions Prescriptions: New acetaminophen 500 mg Tablet 1,000 mg PO Q6H Qty: 0 0RF sennosides-docusate sodium [Stool Softener-Stimulant Laxat] 8.6-50 mg Tablet 1 - 2 tab PO DAILY Qty: 0 0RF ibuprofen 600 mg Tablet 600 mg PO Q6H Qty: 0 0RF Continued levothyroxine 125 mcg tablet 137 mcg PO DAILY azithromycin 250 mg tablet See Rx Instructions .ROUTE .COMPLEX Qty: 6 0RF Rx Instructions: For 250 mg dose pack: take 500 mg today (day 1), then 250 mg for 4 days (days 2-5) Referrals / Follow Up: Care Physician,No Primary [Primary Care Provider] - Disposition Disposition (needs filled in before D/C Order can be placed): Home, Self Care
[2023-05-25 12:50] VITALS: BP 120/90; PULSE 87; RESP 16; TEMP 36.3; O2SAT 100
[2023-05-25] MEDS: Influenza Virus Vac Quad 23-24 60 MCG/0.5 ML SYRINGE IM (15:32)
[2023-05-25 15:44] VITALS: BP 124/76; PULSE 100; RESP 16; TEMP 36.8; O2SAT 100
[2023-05-28 05:13] LABS: Pathology Specimen OB SEE PATHOLOGY REPORT
[2023-05-28 05:13] LABS: Pathology Specimen OB SEE PATHOLOGY REPORT
== END 2023-05-25 18:35 | disposition home or self-care (01) | DRG 783 ==
PROVIDERS: Admitting Provider Obstetrics & Gynecology; Visit Provider Obstetrics & Gynecology
PROC: 0UT70ZZ Resection of Bilateral Fallopian Tubes, Open Approach (ICD-10-PCS; CPT 59514; principal; 2023-05-24 11:45)
DX: O24.420 Gestational diabetes mellitus in childbirth, diet controlled (principal); O60.14X0 Preterm labor third trimester with preterm delivery third trimester, not applicable or unspecified; D25.9 Leiomyoma of uterus, unspecified; O26.03 Excessive weight gain in pregnancy, third trimester; O34.13 Maternal care for benign tumor of corpus uteri, third trimester; O69.81X0 Labor and delivery complicated by cord around neck, without compression, not applicable or unspecified; Z37.0 Single live birth; Z3A.36 36 weeks gestation of pregnancy; Z30.2 Encounter for sterilization; Z23 Encounter for immunization; Z87.42 Personal history of other diseases of the female genital tract; Z87.59 Personal history of other complications of pregnancy, childbirth and the puerperium
CPT/HCPCS: 59025; 59050; 82962; 85025; 85027; 86780; 86850; 86900; 86901; 88302; 88305; 99221; J7120; 90686; G0378; J2405